=== PATIENT | male | born 1980 | race Hispanic/Latino ===

== ENCOUNTER → 2016-10-11 | Outpatient (CLI) | payer OTHER ==
--- NOTE | 2016-10-12 04:26 | REP ---
Clinical: Chronic hematuria. Technique: Real time ultrasound examination of the bladder using curved array transducer. Findings: Mild bladder wall thickening is suggested to approximately 4 mm. Bilateral ureteral jets are identified and no discrete bladder mass is appreciated. Small amount of layering debris is nonspecific. Prostate gland is mildly enlarged and measures 4.6 x 6.0 x 3.9 cm. Prevoid bladder measures 6.7 x 6.4 x 4.7 cm (135 ml). Postvoid bladder measures 5.0 x 5.5 x 4.2 cm (75 ml). Postvoid residual equals 57%. Impression: 1. Mild bladder wall thickening is nonspecific. No discrete mass. Poor filling to the bladder and increased postvoid residual cannot be excluded. 2. Mildly enlarged prostate gland. Signed by Abdulkadir Roa MD 10/12/2016 04:18 A
== END ==
LOC: M RAD 07:32
PROVIDERS: ATTEND Family Medicine
DX: R31.9 Hematuria, unspecified (principal); N40.1 Benign prostatic hyperplasia with lower urinary tract symptoms

== ENCOUNTER → 2016-10-27 | Outpatient (REF) | payer OTHER | LOC: M LABDRAW1 15:39 | PROVIDERS: ATTEND Internal Medicine Endocrinology, Diabetes & Metabolism | DX: E29.1 Testicular hypofunction (principal) ==